=== PATIENT | male | born 1955 ===

== ENCOUNTER 2022-08-28 02:22 | Day surgery (SDC) | payer OTHER, SELFPAY ==
[2022-08-27 13:32] VITALS: BMI 39.3
[2022-08-28 09:20] VITALS: BP 114/77; PULSE 80; RESP 24; TEMP 36.6; O2SAT 98
--- NOTE | 2022-08-28 09:25 | SUR.PREOP ---
CHRISTOFER THOMPSON FROM [employer] HERE FOR PROGRAMMING OF LOOP AND EDUCATION FOR PT. AND .
--- NOTE | 2022-08-28 10:26 | WPDHPUPDATE1 ---
History and Physical Update Update Date/Time: 08/28/22 10:26 History and Physical has been reviewed, including an updated exam of the patient. There are NO changes in the patient's condition. Risks, benefits, and alternatives have been discussed and questions answered. Patient agrees to proceed with procedure.
--- NOTE | 2022-08-28 11:00 | SUR.OPER ---
AT BEDSIDE. DENIES PAIN. L. CHEST INSERTION SITE SOFT, NONTENDER. C/D/I LARGE BANDAID TO SITE. NO REDNESS, DRAINAGE, BLEEDING OR EDEMA NOTED. HAS ALL MONITORING EQUIPMENT AND PAPERWORK FOR LOOP RECORDER IN HER POSSESSION. AWAIT DISCHARGE INSTRUCTIONS.
--- NOTE | 2022-08-28 11:15 | PM.OP ---
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 After verbal and written informed consent was obtained from the patient risks, benefits, and alternatives explained in detail the patient agreed to proceed with the plan of care as outlined above. Patient was evaluated at bedside in the [facility] procedure room. Patient was placed the appropriate supine position. Left anterior chest wall was prepped and draped in the usual sterile fashion. Operators in appropriate sterile garb. The left 4th intercostal space was identified and marked. Utilizing approximately 27 cc of 1% subcutaneous lidocaine the left anterior chest wall was then locally anesthetized. After local anesthesia was achieved, 2 fingerbreadths left of the sternum at the 4th intercostal space was again identified and a 1 cm incision was made with the included skin punch tool. Following this with the included introducer, a tract was made subcutaneously at a 45 degree angle from the sternum. The introducer was then inverted 180 degrees and with the included plunger the [employer] REVEAL LINQ II loop recorder was advanced subcutaneously into position easily and without complication. The plunger was then removed followed by the introducer. Manual pressure was held for least 5-10 min with excellent hemostasis. The device was then interrogated and revealed excellent fidelity and measured at 0.32 mV. The [employer] REVEAL LINQ II SN [id number] was implanted without complication. The incision was then approximated and closed using The incision was then covered with a sterile dressing. Complications: None Implants: [employer] Reveal LINQ II [id number] Surgeon: Balta Ibarra MD Complications: No immediate complications Condition: Stable Disposition: Same day Findings: Successful implantation of [employer] Reveal LINQ II [id number]
--- NOTE | 2022-08-28 12:00 | SUR.OPER ---
AWAITING DISCHARGE ORDERS. NO CHANGE IN L. CHEST INSERTION SITE CONDITION. REMAINS SOFT, NONTENDER. NO BLEEDING OR SWELLING OR DRAINAGE NOTED. BANDAID C/D/I. REVIEWED CARE OF SITE W/ PT AND .
--- NOTE | 2022-08-28 12:12 | SUR.OPER ---
PT. DRESSED FOR DISCHARGE HOME. REVIEWED DISCHARGE INSTRUCTIONS W/ PT AND . QUESTIONS ANSWERED TO SATISFACTION. V/U OF ALL. L. CHEST SITE REMAINS C/D/I, NO CHANGE OR C/O OF PAIN. DISCHARGED HOME, OUT AMBULATORY W/ RN AT SIDE TO 'S WAITING CAR AT ENTRANCE TO HOSPITAL. WITH ALL MONITORING EQUIPMENT AND PAPERWORK IN POSSESSION. PT. TO RESTART [facility] ON THURSDAY EVENING, 08/31/22. OFFICE TO CALL PT. WITH FOLLOW UP APPOINTMENT FOR INCISION CHECK WITHIN WEEK. STEADY GAIT. DENIES DIZZINESS. NO DISTRESS NOTED. VOICES NO C/O.
== END 2022-08-28 12:15 | disposition home or self-care (01) ==
PROVIDERS: PCP Family Medicine; Visit Provider Internal Medicine Cardiovascular Disease
PROC: (CPT 33285; principal; 2022-08-28 10:00)
DX: I63.9 Cerebral infarction, unspecified (principal); I25.10 Atherosclerotic heart disease of native coronary artery without angina pectoris; E11.9 Type 2 diabetes mellitus without complications; I10 Essential (primary) hypertension; E78.2 Mixed hyperlipidemia; G47.33 Obstructive sleep apnea (adult) (pediatric); J44.9 Chronic obstructive pulmonary disease, unspecified; Z87.891 Personal history of nicotine dependence
CPT/HCPCS: 33285; C1764

== ENCOUNTER 2023-01-26 09:00 | Outpatient (NON) | payer OTHER, SELFPAY | END 2023-01-26 09:01 | disposition home or self-care (01) | LOC: ANHLAB 01-28 11:19 | PROVIDERS: PCP Family Medicine; Visit Provider Nurse Practitioner | DX: C44.311 Basal cell carcinoma of skin of nose (principal) | CPT/HCPCS: 88305 ==

== ENCOUNTER 2023-03-02 14:13 | Outpatient (NON) | payer OTHER, SELFPAY | END 2023-03-02 14:14 | disposition home or self-care (01) | LOC: ANHLAB 14:14 | PROVIDERS: PCP Family Medicine; Visit Provider Nurse Practitioner | DX: C44.311 Basal cell carcinoma of skin of nose (principal) | CPT/HCPCS: 88305; 88331 ==